=== PATIENT | female | born 2000 | race Caucasian/White ===

== ENCOUNTER 2018-06-20 22:13 | Emergency (ER) | payer MEDICAID, OTHER ==
[2018-06-20] MEDS ORDERED: NORMAL SALINE 1000 ML 1,000 ML IV ONE (23:24)
--- NOTE | 2018-06-20 23:35 | ER Document Report ---
ED General - General Chief Complaint: Passed Out Prior to Arrival Stated Complaint: SYNCOPAL EPISODES Time Seen by Provider: 06/20/18 23:23 Primary Care Provider: WINSOME MARISCAL MD [Primary Care Provider] - Follow up as needed TRAVEL OUTSIDE OF THE [place] IN LAST 30 DAYS: No - HPI Notes: Patient is a 17-year-old female that presents to the emergency department for chief complaint of nausea vomiting and lightheadedness. Patient is at 8 weeks gestation. Patient reports she has had early ultrasound in and has single intrauterine gestation. She denies any current vaginal discharge, vaginal bleeding, abdominal pain, lower back pain or pelvic cramping. She reports 2 previous hospitalizations already with this for vomiting and dehydration. She has been prescribed Reglan and Zofran at home. She states she took a dose of the Reglan this morning but the taste of the ODT Zofran makes her nauseated so she has not taken it. She reports about 20 episodes of emesis today. She has been trying to drink fluids but reports immediately vomiting afterwards. She states this evening she was standing in a hot shower which reportedly helps with her nausea and began to feel very lightheaded. She denied full syncopal event. She denied any fall or injury. She states that she sat down in the shower and had her mother come get her which is why the mother called EMS to bring her to the ED. EMS did give her Zofran and she states she is feeling better since receiving it. 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 REVIEW OF SYSTEMS: CONSTITUTIONAL : No fever No chills No diaphoresis No recent illness EENT: No vision changes No congestion No sore throat CARDIOVASCULAR: No chest pain No palpitations RESPIRATORY: No shortness of breath No cough No difficulty breathing GASTROINTESTINAL: No abdominal pain nausea vomiting No diarrhea GENITOURINARY: No dysuria No hematuria No difficulty urinating MUSCULOSKELETAL: No back pain No leg pain No arm pain SKIN: No rashes No lesions LYMPHATIC: No swollen, enlarged glands. NEUROLOGICAL: lightheadedness No headache No weakness No paresthesias PSYCHIATRIC: No anxiety No depression PHYSICAL EXAMINATION: Vital signs reviewed, nursing noted reviewed. GENERAL: Well-appearing, well-nourished and in no acute distress. HEAD: Atraumatic, normocephalic. EYES: Eyes appear normal, extraocular movements intact, sclera anicteric, conjunctiva are normal. ENT: nares patent, oropharynx clear without exudates. Mildly dry mucous membranes. NECK: Normal range of motion, supple without lymphadenopathy LUNGS: Breath sounds clear to auscultation bilaterally and equal. No wheezes rales or rhonchi. HEART: Regular rate and rhythm without murmurs ABDOMEN: Soft, nontender, normoactive bowel sounds. No rebound, guarding, or rigidity. No masses appreciated. EXTREMITIES: Nontender, good range of motion, no pitting or edema. NEUROLOGICAL: No focal neurological deficits. Moves all extremities spontaneously Motor and sensory grossly intact on exam. PSYCH: Normal mood, normal affect. SKIN: Warm, Dry, normal turgor, no rashes or lesions noted on exposed skin - Related Data Allergies/Adverse Reactions: No Known Allergies Allergy (Verified 06/20/18 22:18) Past Medical History - Social History Smoking Status: Never Smoker Family History: Reviewed & Not Pertinent Neurological Medical History: Reports: Hx Migraine Psychiatric Medical History: Reports: Hx Bipolar Disorder, Hx Depression Past Surgical History: Reports: Hx Neurologic Surgery - Shunt - Immunizations Immunizations up to date: Yes Hx Diphtheria, Pertussis, Tetanus Vaccination: Yes Physical Exam - Vital signs Vitals: Temp Pulse Resp BP Pulse Ox 98.2 F 93 H 16 111/59 L 98 06/20/18 22:24 06/20/18 22:24 06/20/18 22:24 06/20/18 22:24 06/20/18 22:24 Course - Re-evaluation Re-evalutation: 06/20/18 23:34 Vitals reviewed. Nursing notes reviewed. Patient is not tachycardic but does have mildly dry mucous membranes. She will be given IV hydration. Lab work will be obtained to evaluate her electrolyte and renal function. 06/21/18 00:32 Patient's blood work is unremarkable. She has tolerated oral intake since receiving Zofran by EMS. She is feeling better after 1 L of fluid and is not near syncopal. She is able to ambulate. She was counseled on taking her metoclopramide and Zofran that have been previously prescribed to her as dire cted. She was counseled on hydration and return precautions. She will follow with [facility] in the next few days. She is stable at discharge. Laboratory 06/20/18 06/20/18 23:45 23:45 WBC 11.2 H RBC 4.04 Hgb 11.9 L Hct 33.9 L MCV 84 MCH 29.5 MCHC 35.1 RDW 13.4 Plt Count 204 Seg Neutrophils % 86.1 H Lymphocytes % 10.0 L Monocytes % 3.8 Eosinophils % 0.0 Basophils % 0.1 Absolute Neutrophils 9.6 H Absolute Lymphocytes 1.1 Absolute Monocytes 0.4 Absolute Eosinophils 0.0 Absolute Basophils 0.0 Sodium 137.9 Potassium 3.5 L Chloride 105 Carbon Dioxide 26 Anion Gap 7 BUN 13 Creatinine 0.53 Est GFR ( Amer) > 60 Est GFR (Non-Af Amer) > 60 Glucose 96 Calcium 9.3 - Vital Signs Vital signs: Temp Pulse Resp BP Pulse Ox 98.2 F 93 H 16 111/59 L 98 06/20/18 22:24 06/20/18 22:24 06/20/18 22:24 06/20/18 22:24 06/20/18 22:24 - Laboratory Result Diagrams: 06/20/18 23:45 06/20/18 23:45 Laboratory results interpreted by me: 06/20/18 06/20/18 23:45 23:45 WBC 11.2 H Hgb 11.9 L Hct 33.9 L Seg Neutrophils % 86.1 H Lymphocytes % 10.0 L Absolute Neutrophils 9.6 H Potassium 3.5 L - EKG Interpretation by Me Additional EKG results interpreted by me: 06/20/18 23:40 Interpreted by myself [id number]: Normal sinus rhythm, rate 59, normal axis, no ectopy, no WPW Wellens or Brugada Discharge - Discharge Clinical Impression: Nausea and vomiting during Condition: Stable Disposition: HOME, SELF-CARE Instructions: Vomiting ([facility]), Near Syncopal Episode ([facility]), Dehydration ([facility]) Additional Instructions: Please return to the emergency department if you have any worsening, or concern of your symptoms. Please return to the emergency department if you develop chest pain, difficulty breathing, severe abdominal pain, or ongoing vomiting. Please follow-up with your primary care physician in 2-3 days and any other recommended physicians. If prescribed, take all medications as directed. If you have any questions or concerns do not hesitate to return the emergency department for evaluation. Take the metoclopramide and Zofran that have been previously prescribed to you as directed Referrals: WINSOME MARISCAL MD [Primary Care Provider] - Follow up in 3-5 days
[2018-06-21 00:01] LABS: ABSOLUTE LYMPHOCYTES (AUTO) 1.1 10^3/uL (0.5-4.7); ABSOLUTE MONOCYTES (AUTO) 0.4 10^3/uL (0.1-1.4); ABSOLUTE NEUT (AUTO) 9.6 10^3/uL (1.7-8.2); BASOPHILS % (AUTO) 0.1 % (0-2); HEMATOCRIT 33.9 % (36.0-47.0); HEMOGLOBIN 11.9 g/dL (12.0-15.5); MEAN CORPUSCULAR HEMOGLOBIN 29.5 pg (27.0-33.4); MEAN CORPUSCULAR HGB CONC 35.1 g/dL (32.0-36.0); MEAN CORPUSCULAR VOLUME 84 fl (80-97); MONOCYTES % (AUTO) 3.8 % (3-13); PLATELET COUNT 204 10^3/uL (150-450); RED BLOOD COUNT 4.04 10^6/uL (3.72-5.28); RED CELL DISTRIBUTION WIDTH 13.4 % (11.5-14.0); SEGMENTED NEUTROPHILS % (AUTO) 86.1 % (42-78); TOTAL CELLS COUNTED % (AUTO) 100 %; WHITE BLOOD COUNT 11.2 10^3/uL (4.0-10.5)
[2018-06-21 00:22] LABS: ANION GAP 7 (5-19); BLOOD UREA NITROGEN 13 mg/dL (7-20); CALCIUM 9.3 mg/dL (8.4-10.2); CARBON DIOXIDE 26 mmol/L (22-30); CHLORIDE 105 mmol/L (98-107); GLUCOSE 96 mg/dL (75-110); POTASSIUM 3.5 mmol/L (3.6-5.0); SODIUM 137.9 mmol/L (137-145)
[2018-06-21 01:37] VITALS: BP 102/56
--- NOTE | 2018-06-21 09:38 | EKG REPORT ---
SEVERITY:- OTHERWISE NORMAL ECG - SINUS ARRHYTHMIA, RATE 53-73 : Confirmed by: Phong Sutton MD 21-Jun-2018 09:37:11
== END 2018-06-21 01:20 | disposition home or self-care (01) ==
LOC: ER 22:13
DX: O21.8 Other vomiting complicating pregnancy (principal); R55 Syncope and collapse; Z3A.08 8 weeks gestation of pregnancy
CPT/HCPCS: 93005; 99284; 96360; 36415; 85025; 80048; 93010; J7030

== ENCOUNTER → 2019-11-09 | Outpatient (CLI) | payer SELFPAY ==
--- NOTE | 2019-11-09 14:25 | RADIOLOGY REPORT (SQ) ---
EXAM DESCRIPTION: U/S [id number] TRNABD 1GES W/ODOP IMAGES COMPLETED DATE/TIME: 11/09/2019 2:11 pm REASON FOR STUDY: Z34.81 ENCOUNTER FOR SUPRVSN OF NORMAL , FIRST TRIMESTER Z34.81 ENCOUNTE R FOR SUPRVSN OF NORMAL , FIRST TRIM COMPARISON: None. TECHNIQUE: Transabdominal static and realtime grayscale images acquired of the pelvis. Additional se lected spectral and color Doppler images recorded. All images stored on PACs. CG: Not available. CLINICAL DATES: GARETT: 05/28/2020. EGA: 11 weeks 2 days LIMITATIONS: None. FINDINGS: FETUS: Single Living intrauterine . ULTRASOUND EGA: 11 weeks 0 days ULTRASOUND GARETT: 05/30/2020 EFW: Not applicable less than 20 weeks. CRL: 4.2 cm FHR: 178 beats per minute. SURVEY: No visualized anomalies. AMNIOTIC FLUID: Adequate amount. PLACENTA: Not yet developed due to early gestation. SUBCHORIONIC BLEED: No. SIZE OF BLEED: Not applicable. UTERUS: The uterus measures 11.8 x 9.3 x 8.6 cm. No masses. No anomalies. CERVICAL LENGTH: 2.7 cm Closed. RIGHT ADNEXA: The right ovary measures 3.0 x 2.5 x 2.1 cm. Normal ovary with normal vascular flow. No adnexal free fluid. No adnexal masses. LEFT ADNEXA: The left ovary measures 3.5 x 2.6 x 1.8 cm. A 1.2 x 1.3 x 1.5 cm cyst may represent co rpus luteum cyst . Normal ovary with normal vascular flow. No adnexal free fluid. FREE FLUID: None. OTHER: No other significant finding. IMPRESSION: LIVING INTRAUTERINE . EGA: 11 weeks 0 days. Small Left ovarian cyst may represent corpus luteal cyst. Trimester of : First trimester - 0 to 13 weeks. TECHNICAL DOCUMENTATION: JOB ID: [id number] [employer]- All Rights Reserved rev-08/01 Reading location - IP/workstation name: [email or web address]
== END ==
LOC: RAD 13:48
PROVIDERS: ATTEND Midwife
DX: Z34.81 Encounter for supervision of other normal pregnancy, first trimester (principal); Z3A.11 11 weeks gestation of pregnancy
CPT/HCPCS: 76801

== ENCOUNTER → 2020-01-04 | Outpatient (CLI) | payer SELFPAY ==
--- NOTE | 2020-01-04 15:21 | RADIOLOGY REPORT (SQ) ---
EXAM DESCRIPTION: U/S OB 14+ TRNABD 1GES W/O DOP IMAGES COMPLETED DATE/TIME: 01/04/2020 2:00 pm REASON FOR STUDY: (Z34.82)ENCOUNTER FOR SUPRVSN OF NORMAL , SECOND TRIMESTER Z34.[address] FOR SUPRVSN OF NORMAL , SECOND TRI COMPARISON: 11/09/2019 TECHNIQUE: Static and Dynamic grayscale imaging performed of gravid uterus using transabdominal appr oach. Additional selected color Doppler and spectral images recorded. All stored on PACS. LIMITATIONS: None. FINDINGS: FETUSES SEEN:1 EGA: 18 weeks 2 days Calculated using BPD,FL,HC,AC documented on images. GARETT: 06/04/2020 EFW: 902 grams PERCENTILE: Not applicable. Fetus less than or equal to 20 weeks gestation. LVP: 6.4 x 7.2 cm PLACENTA: Anterior. PRESENTATION: Vertex ANATOMY: HEART RATE: 155 beats per minute. FOUR CHAMBER HEART: Visualized. THREE VESSEL CORD: Yes. CORD INSERTION: Visualized. KIDNEYS AND BLADDER: Visualized. Appear normal. STOMACH: Visualized. Appears normal. SPINE: Normal as visualized. BRAIN AND LATERAL VENTRICLES: Visualized. Appear normal. OTHER: No other significant finding. MATERNAL ADNEXA: Maternal ovaries not visualized. CERVICAL LENGTH: 2.7 cm Closed. OTHER: No other significant finding. IMPRESSION: LIVING INTRAUTERINE . ESTIMATED GESTATIONAL AGE 18 weeks 2 days NO VISUALIZED ANOMALIES. Trimester of : Second trimester - 13 weeks 1 day to 27 weeks 6 days. TECHNICAL DOCUMENTATION: JOB ID: [id number] 2010 [employer]- All Rights Reserved Reading location - IP/workstation name: [email or web address]
== END ==
LOC: RAD 13:02
PROVIDERS: ATTEND Midwife
DX: Z34.82 Encounter for supervision of other normal pregnancy, second trimester (principal)
CPT/HCPCS: 76805